=== PATIENT | female | born 1965 | race Caucasian/White ===

== ENCOUNTER 2023-12-13 13:59 | Emergency (ER) | payer BC ==
[2023-12-13] MEDS: Acetaminophen/HYDROcodone 325-5 MG Tab PO ONE (15:02)
[2023-12-13] MEDS: Ketorolac 30 MG/ML SDV IM ONE (15:16)
[2023-12-14] MEDS: Ketorolac 30 MG/ML SDV ONE (09:45)
== END 2023-12-13 15:40 | disposition home or self-care (01) ==
LOC: LB.ED 13:59
DX: S86.812A Strain of other muscle(s) and tendon(s) at lower leg level, left leg, initial encounter (principal); M25.562 Pain in left knee; Z79.899 Other long term (current) drug therapy; Z88.5 Allergy status to narcotic agent; Z91.040 Latex allergy status; X58.XXXA Exposure to other specified factors, initial encounter
CPT/HCPCS: 73562; 96372; 99283; A9270; J1885